=== PATIENT | male | born 1995 | race Caucasian/White ===

== ENCOUNTER 2019-01-30 14:13 | Emergency (ER) | payer OTHER ==
[~2019-01-30] VITALS: Ht 165.1 cm; Wt 68.0 kg
[2019-01-30] MEDS ORDERED: IBUPROFEN 600MG TABLET PO STA (21:06)
[2019-01-30 22:32] VITALS: BP 125/75
== END 2019-01-30 22:33 | disposition home or self-care (01) ==
LOC: ER 15:24
DX: R07.89 Other chest pain (principal)
CPT/HCPCS: 71045; 93005; 99283